=== PATIENT | female | born 1935 | race Hispanic/Latino ===

== ENCOUNTER 2018-01-04 11:36 | Emergency (ER) | payer SELFPAY ==
[2018-01-04 12:52] LABS: Absolute Lymphocytes (CBC) 2.1 K/uL (0.7-4.9); Absolute Monocytes 0.6 K/uL (0.1-1.3); Absolute Neutrophil 5.1 K/uL (1.8-8.0); Basophils % 0.8 % (0-1.3); Hematocrit 25.5 % (36.0-45.0); Lymphocytes % 25.2 % (15.3-44.8); MCH 28.4 pg (27.0-35.0); MCV 85.4 fL (80-100); MPV 8.9 fL (7.6-11.3); Monocytes % 7.9 % (3.3-12.3); RBC Red Blood Cell Count 2.99 M/uL (3.86-4.86)
[2018-01-04 13:14] LABS: C-Reactive Protein 45.3 mg/L (<3.00); Potassium 5.1 mmol/L (3.5-5.1)
--- NOTE | 2018-01-04 13:27 | RAD REPORT ---
EXAM DESCRIPTION: RAD - Foot Right 3 View - 01/04/2018 1:18 pm CLINICAL HISTORY: wound base of 1st toe COMPARISON: No comparisons FINDINGS: Soft tissue swelling is seen along the base of the first toe adjacent to the first metatar zonia head. No underlying evidence of osteomyelitis seen. Prominent calcaneal spurs are evident. Heavy atherosclerosis seen.
--- NOTE | 2018-01-04 14:31 | EDPHYS ---
Physician Documentation [facility] Name: Barb Becker Age: 82 yrs Sex: Female : 1935 Arrival Date: 01/04/2018 Time: 11:42 Bed 24 Private MD: ED Physician Narendra Bates HPI: 01/04 12:42 This 82 yrs old Female presents to ER via Ambulatory with complaints of Wound rn Infection. 12:42 The patient presents with cellulitis of the right foot. Description: warm. rn 12:43 Onset: The symptoms/episode began/occurred 1 week(s) ago. Possible cause(s): unknown. rn Severity of symptoms: At their worst the symptoms were moderate, in the emergency department the symptoms have improved. The patient has experienced similar episodes in the past. REports couldn't sleep over last few days because of aching and pain to right foot, has had ulcer on instep of right foot for about 4 months, reports recent redness and pain, no drainage, no fever, no injury. Is diabetic. . Historical: - Allergies: 11:59 No Known Allergies; hj - Home Meds: 11:59 furosemide 80 mg Oral tab 1 tab once daily [Active]; Vitamin D Oral [Active]; hj - PMHx: 11:59 Hypertension; Diabetes - NIDDM; hj - PSHx: 11:59 None; hj - Immunization history:: Adult Immunizations up to date. - Social history:: Smoking status: Patient/guardian denies using tobacco, Patient/guardian denies using alcohol. - Ebola Screening: : Patient negative for fever greater than or equal to 101.5 degrees Fahrenheit, and additional compatible Ebola Virus Disease symptoms Patient denies exposure to infectious person Patient denies travel to an Ebola-affected area in the 21 days before illness onset. - Family history:: not pertinent. - Hospitalizations: : No recent hospitalization is reported. ROS: 12:43 Constitutional: Negative for fever, chills, and weight loss, Eyes: Negative for injury, rn pain, redness, and discharge, Neck: Negative for injury, pain, and swelling, Cardiovascular: Negative for chest pain, palpitations, and edema, Respiratory: Negative for shortness of breath, cough, wheezing, and pleuritic chest pain, Abdomen/GI: Negative for abdominal pain, nausea, vomiting, diarrhea, and constipation, MS/Extremity: + right foot pain Skin: + redness to right foot Neuro: Negative for headache, weakness, and seizure. Exam: 12:43 Constitutional: This is a well developed, well nourished patient who is awake, alert, rn and in no acute distress. Head/Face: Normocephalic, atraumatic. ENT: MMM Cardiovascular: Regular rate and rhythm with a normal S1 and S2. No pulse deficits. Respiratory: Lungs have equal breath sounds bilaterally, clear to auscultation Abdomen/GI: soft, non-tender MS/ Extremity: Pulses equal, no cyanosis. Neurovascular intact. Full, normal range of motion. Equal circumference. Right plantar/medial surface of foot at base of 1st toe with chronic ulcer, no drainage, + mild surrounding erythema, no fluctuance or streaking. Neuro: Awake and alert, GCS 15, oriented to person, place, time, and situation. Cranial nerves II-XII grossly intact. Motor strength 5/5 in all extremities. Sensory grossly intact. Vital Signs: 11:59 BP 127 / 55; Pulse 68; Resp 18; Temp 97.8(TE); Pulse Ox 98% on R/A; Weight 60.78 kg; hj Height 5 ft. 0 in. (152.40 cm); Pain 10/10; 13:19 BP 144 / 89; Pulse 62; Resp 18; Pulse Ox 100% ; aj1 14:25 BP 147 / 60; Pulse 60; Resp 18; Pulse Ox 100% ; ds4 11:59 Body Mass Index 26.17 (60.78 kg, 152.40 cm) MDM: 12:06 Patient medically screened. rn 14:28 Differential diagnosis: cellulitis, osteomyelitis. Data reviewed: vital signs, nurses rn notes, lab test result(s), radiologic studies, plain films, and as a result, I will admit patient. Counseling: I had a detailed discussion with the patient and/or guardian regarding: the historical points, exam findings, and any diagnostic results supporting the discharge/admit diagnosis, lab results, radiology results, the need for further work-up and treatment in the hospital. Response to treatment: the patient's symptoms have mildly improved after treatment. ED course: Recommended admission given abnormal kidney function and cellulitis, family reports just evaluated in [place] 2 weeks ago, kidney function seems better because at that time was getting temporary dialysis, also state she had MRI of right foot and ruled out osteo, for these reasons, family requests outpt management with abx and will return if worsens.. 01/04 12:13 Order name: CBC with Diff; Complete Time: 13:40 rn 01/04 12:13 Order name: Basic Metabolic Panel; Complete Time: 13:40 rn 01/04 12:13 Order name: CRP; Complete Time: 13:40 rn 01/04 12:13 Order name: Sed Rate; Complete Time: 13:40 rn 01/04 12:13 Order name: XRAY Foot RIGHT 3 View; Complete Time: 13:40 rn 01/04 12:13 Order name: Blood Culture Adult (2) rn 01/04 12:13 Order name: IV Start; Complete Time: 12:35 rn 01/04 12:13 Order name: Glucose Level; Complete Time: 12:35 rn Administered Medications: 14:53 Drug: NS 0.9% 500 ml Route: IV; Rate: bolus; Site: right antecubital; aj1 15:42 Follow up: IV Status: Completed infusion iw 15:05 Drug: Bactrim (160 mg-800 mg (DS) 1 tablet Route: PO; aj1 15:43 Follow up: Response: No adverse reaction iw 15:05 Drug: LevaQUIN 500 mg Route: PO; aj1 15:43 Follow up: Response: No adverse reaction Point of Care Testing: Blood Glucose: 12:36 Blood Glucose: 206 mg/dL; aj1 Ranges: Critical Glucose Levels:Adult <50 mg/dl or >400 mg/dl <40 mg/dl or >180 mg/dl Disposition: 01/04/18 14:31 Discharged to Home. Impression: Cellulitis of right lower limb. - Condition is Stable. - Discharge Instructions: Cellulitis, Adult, Hyperglycemia. - Prescriptions for Levaquin 500 mg Oral Tablet - take 1 tablet by ORAL route once daily for 10 days; 10 tablet. Bactrim DS 800- 160 mg Oral Tablet - take 1 tablet by ORAL route every 12 hours for 10 days; 20 tablet. Tylenol- Codeine #3 300-30 mg Oral Tablet - take 1 tablet by ORAL route every 6 hours As needed; 20 tablet. Metformin 500 mg Oral Tablet - take 1 tablet by ORAL route once daily for 7 days Then take 1 tablet with morning meals AND evening meals; 60 tablet. - Medication Reconciliation Form, Thank You Letter, Antibiotic Education, Prescription Opioid Use form. - Follow up: Private Physician; When: As needed; Reason: Recheck today's complaints, Re-evaluation by your physician. - Problem is new. - Symptoms have improved. Signatures: Dispatcher [employer] EDMS Eliza Black RN RN aj1 Bel Russell RN RN iw Narendra Bates MD MD rn Joaquin, Henry, RN RN hj Corrections: (The following items were deleted from the chart) 15:43 14:31 01/04/2018 14:31 Discharged to Home. Impression: Cellulitis of right lower limb. iw Condition is Stable. Forms are Medication Reconciliation Form, Thank You Letter, Antibiotic Education, Prescription Opioid Use. Follow up: Private Physician; When: As needed; Reason: Recheck today's complaints, Re-evaluation by your physician. Problem is new. Symptoms have improved. rn
--- NOTE | 2018-01-04 14:31 | ER ---
Nurse's Notes [facility] Name: Barb Becker Age: 82 yrs Sex: Female : 1935 Arrival Date: 01/04/2018 Time: 11:42 Bed 24 Private MD: Diagnosis: Cellulitis of right lower limb Presentation: 01/04 11:56 Presenting complaint: grand daughter: she couldn't sleep all night because her R foot hj is aching and she has a wound and it looks like its infected; this wound has been there for weeks; denies taking meds [employer];. Transition of care: patient was not received from another setting of care. Onset of symptoms was January 04, 2018. Risk Assessment: Do you want to hurt yourself or someone else? Patient reports no desire to harm self or others. Initial Sepsis Screen: Does the patient meet any 2 criteria? No. Patient's initial sepsis screen is negative. Does the patient have a suspected source of infection? No. Patient's initial sepsis screen is negative. Care prior to arrival: None. 11:56 Method Of Arrival: Ambulatory 11:56 Acuity: SD 3 hj Triage Assessment: 11:59 General: Appears in no apparent distress. uncomfortable, Behavior is calm, cooperative, hj appropriate for age. Pain: Complains of pain in right leg. Historical: - Allergies: 11:59 No Known Allergies; hj - Home Meds: 11:59 furosemide 80 mg Oral tab 1 tab once daily [Active]; Vitamin D Oral [Active]; hj - PMHx: 11:59 Hypertension; Diabetes - NIDDM; hj - PSHx: 11:59 None; hj - Immunization history:: Adult Immunizations up to date. - Social history:: Smoking status: Patient/guardian denies using tobacco, Patient/guardian denies using alcohol. - Ebola Screening: : Patient negative for fever greater than or equal to 101.5 degrees Fahrenheit, and additional compatible Ebola Virus Disease symptoms Patient denies exposure to infectious person Patient denies travel to an Ebola-affected area in the 21 days before illness onset. - Family history:: not pertinent. - Hospitalizations: : No recent hospitalization is reported. Screenin:59 Abuse screen: Denies threats or abuse. Denies injuries from another. Nutritional hj screening: No deficits noted. Tuberculosis screening: No symptoms or risk factors identified. Fall Risk None identified. Assessment: 12:15 General: Appears in no apparent distress. uncomfortable, Behavior is calm, cooperative, aj1 appropriate for age. Pain: Complains of pain in right foot Pain currently is 5 out of 10 on a pain scale. Neuro: Level of Consciousness is awake, alert, obeys commands. Cardiovascular: Patient's skin is warm and dry. Respiratory: Airway is patent Respiratory effort is even, unlabored, Respiratory pattern is regular, symmetrical. GI: No signs and/or symptoms were reported involving the gastrointestinal system. : No signs and/or symptoms were reported regarding the genitourinary system. EENT: No signs and/or symptoms were reported regarding the EENT system. Derm: Wound noted right foot Wound is ulcer, patient states that it has been there for the past 4 months. Musculoskeletal: No signs and/or symptoms reported regarding the musculoskeletal system. Circulation, motion, and sensation intact. 13:19 Reassessment: Patient appears in no apparent distress at this time. No changes from aj1 previously documented assessment. Patient and/or family updated on plan of care and expected duration. Pain level reassessed. Patient is alert, oriented x 3, equal unlabored respirations, skin warm/dry/pink. 14:53 Reassessment: Patient appears in no apparent distress at this time. No changes from aj1 previously documented assessment. Patient and/or family updated on plan of care and expected duration. Pain level reassessed. Patient is alert, oriented x 3, equal unlabored respirations, skin warm/dry/pink. Patient discharge pending finishing IV fluids. Vital Signs: 11:59 BP 127 / 55; Pulse 68; Resp 18; Temp 97.8(TE); Pulse Ox 98% on R/A; Weight 60.78 kg; Height 5 ft. 0 in. (152.40 cm); Pain 10/10; 13:19 BP 144 / 89; Pulse 62; Resp 18; Pulse Ox 100% ; aj1 14:25 BP 147 / 60; Pulse 60; Resp 18; Pulse Ox 100% ; ds4 11:59 Body Mass Index 26.17 (60.78 kg, 152.40 cm) ED Course: 11:42 Patient arrived in ED. mr 11:57 Triage completed. 11:59 Arm band placed on left wrist. hj 11:59 Patient has correct armband on for positive identification. Bed in low position. Call hj light in reach. Side rails up X 1. 12:06 Narendra aBtes MD is Attending Physician. rn 12:14 Eliza Black RN is Primary Nurse. aj1 12:15 Inserted saline lock: 22 gauge in right antecubital area, using aseptic technique. aj1 Blood collected. 12:15 Initial lab(s) drawn, by wy, sent to lab. First set of blood cultures drawn by me. aj1 12:15 No provider procedures requiring assistance completed. aj1 12:32 Second set of blood cultures drawn by me. aj1 13:17 X-ray completed. Portable x-ray completed in exam room. Patient tolerated procedure ls3 well. 13:19 XRAY Foot RIGHT 3 View In Process Unspecified. EDMS 15:42 IV discontinued, intact, bleeding controlled, No redness/swelling at site. Pressure iw dressing applied. Administered Medications: 14:53 Drug: NS 0.9% 500 ml Route: IV; Rate: bolus; Site: right antecubital; aj1 15:42 Follow up: IV Status: Completed infusion iw 15:05 Drug: Bactrim (160 mg-800 mg (DS) 1 tablet Route: PO; aj1 15:43 Follow up: Response: No adverse reaction iw 15:05 Drug: LevaQUIN 500 mg Route: PO; aj1 15:43 Follow up: Response: No adverse reaction iw Point of Care Testing: Blood Glucose: 12:36 Blood Glucose: 206 mg/dL; aj1 Ranges: Outcome: 14:31 Discharge ordered by MD. rn 15:42 Discharged to home via wheelchair, with family. iw 15:42 Condition: good 15:42 Discharge instructions given to patient, family, Instructed on discharge instructions, follow up and referral plans. medication usage, Demonstrated understanding of instructions, follow-up care, medications, Prescriptions given X 4. 15:43 Patient left the ED. iw Signatures: Dispatcher [employer] EDHI Eliza Black RN RN ajKary Marshall Irene, RN RN iw Narendra Bates MD MD rn Swanson, Donovan ds4 Evans Santoro RN RN hj Siler, Lynzie ls3 Corrections: (The following items were deleted from the chart) 12:01 11:59 Pulse 68bpm; Resp 18bpm; Pulse Ox 98% RA; Temp 97.8F Temporal; 60.78 kg; Height 5 hj ft. 0 in.; BMI: 26.1; Pain 10/10; hj
[2018-01-04] MEDS ORDERED: NA CHLORIDE 0.9% 500 ML ONE (14:54)
[2018-01-04] MEDS ORDERED: SMZ./TMP. 800/160 MG TABLET ONE (15:08)
[2018-01-04] MEDS ORDERED: levoFLOXacin 500 MG TAB ONE (15:09)
== END 2018-01-04 15:43 | disposition home or self-care (01) ==
LOC: ER 11:36
DX: L03.115 Cellulitis of right lower limb (principal); I10 Essential (primary) hypertension
CPT/HCPCS: 36415; 80048; 82962; 85025; 85652; 86140; 87040; 96360; 99284

== ENCOUNTER 2018-01-05 17:06 | Inpatient (IN) | payer SELFPAY ==
[2018-01-05] MEDS ORDERED: ONDANSETRON 4 MG/2 ML VIAL ONE (17:35)
[2018-01-05] MEDS ORDERED: NA CHLORIDE 0.9% 500 ML ONE ×2 (17:36→19:16)
--- NOTE | 2018-01-05 17:47 | ER ---
Nurse's Notes [facility] Name: Barb Becker Age: 82 yrs Sex: Female : 1935 Arrival Date: 01/05/2018 Time: 17:09 Bed 20 Private MD: None, None Diagnosis: Cellulitis of right lower limb;Vomiting;Dehydration;Hyperglycemia, unspecified Presentation: 01/05 17:10 Presenting complaint: Child states: "She's been throwing up a lot since 4am this aj1 morning, she can't hold anything down, not even water. She hasn't been able to take her antibiotics." Patient was seen in this ER yesterday for infection of a wound on the right foot, she was diagnosed with cellulitis and discharged home with Rx for Tylenol #3, Bactrim, Levaquin, and Metformin. States that she took the Tylenol #3 last night, but has not taken any today and she has still been throwing up. Denies fever. Transition of care: patient was not received from another setting of care. Onset of symptoms was January 04, 2018. Risk Assessment: Do you want to hurt yourself or someone else? Patient reports no desire to harm self or others. Initial Sepsis Screen: Does the patient meet any 2 criteria? No. Patient's initial sepsis screen is negative. Does the patient have a suspected source of infection? Yes: Skin breakdown/wound. Care prior to arrival: None. 17:10 Method Of Arrival: Wheelchair aj1 17:10 Acuity: SD 3 aj1 Triage Assessment: 17:16 General: Appears in no apparent distress. comfortable, Behavior is calm, cooperative, aj1 appropriate for age. Pain: Denies pain. Neuro: Level of Consciousness is awake, alert, obeys commands. Cardiovascular: Patient's skin is warm and dry. Respiratory: Airway is patent Respiratory effort is even, unlabored, Respiratory pattern is regular, symmetrical. GI: Reports nausea, vomiting. Historical: - Allergies: 17:16 No Known Allergies; aj1 - Home Meds: 17:16 furosemide 80 mg Oral tab 1 tab once daily [Active]; Vitamin D Oral [Active]; Metformin aj1 Oral [Active]; Bactrim DS Oral [Active]; Levaquin Oral [Active]; tylenol #3 [Active]; - PMHx: 17:16 Diabetes - NIDDM; Hypertension; aj1 - Immunization history:: Flu vaccine is up to date. - Social history:: Smoking status: Patient/guardian denies using tobacco. - Ebola Screening: : Patient denies travel to an Ebola-affected area in the 21 days before illness onset. - Family history:: not pertinent. - Hospitalizations: : Patient was recently seen at. Screenin:30 Abuse screen: Denies threats or abuse. Denies injuries from another. Nutritional sv screening: No deficits noted. Tuberculosis screening: No symptoms or risk factors identified. Fall Risk None identified. Assessment: 17:30 General: Appears in no apparent distress. uncomfortable, Behavior is calm, cooperative, sv appropriate for age. Pain: Denies pain. Neuro: Level of Consciousness is awake, alert, obeys commands, Oriented to person, place, time, situation, Moves all extremities. Respiratory: Respiratory effort is even, unlabored, Respiratory pattern is regular, symmetrical. GI: Abdomen is flat, Reports intolerance of fluids, intolerance of food, nausea, vomiting. Derm: Skin is normal. 18:00 Reassessment: Patient appears in no apparent distress at this time. No changes from sv previously documented assessment. Patient and/or family updated on plan of care and expected duration. Pain level reassessed. Patient is alert, oriented x 3, equal unlabored respirations, skin warm/dry/pink. 19:29 General: Appears in no apparent distress. uncomfortable, Behavior is calm, cooperative, ea appropriate for age. Pain: Denies pain. Neuro: Level of Consciousness is awake, alert, obeys commands, Oriented to person, place, time, situation, Moves all extremities. Cardiovascular: Patient's skin is warm and dry. Respiratory: Airway is patent Respiratory effort is even, unlabored, Respiratory pattern is regular, symmetrical. GI: Abdomen is non-distended, Bowel sounds present X 4 quads. Reports intolerance of fluids, intolerance of food, nausea. Derm: Skin is dry, Skin is normal, Skin temperature is warm. 20:36 Reassessment: Report called to receiving nurse on fourth floor. Reassessment: Patient ea and/or family updated on plan of care and expected duration. Pain level reassessed. Patient is alert, oriented x 3, equal unlabored respirations, skin warm/dry/pink. Vital Signs: 17:16 BP 135 / 42; Pulse 59; Resp 18; Temp 97.3; Pulse Ox 100% on R/A; Weight 60.78 kg (R); aj1 Height 5 ft. 0 in. (152.40 cm); Pain 0/10; 17:45 BP 153 / 52; Pulse 59; Resp 16; Pulse Ox 100% ; sv 19:00 BP 154 / 41; Pulse 61; Resp 16; Pulse Ox 99% ; sv 19:30 BP 160 / 55; Pulse 73; Resp 18; Pulse Ox 100% ; ea 17:16 Body Mass Index 26.17 (60.78 kg, 152.40 cm) aj1 ED Course: 17:09 Patient arrived in ED. sb2 17:10 None, None is Private Physician. sb2 17:15 Triage completed. aj1 17:16 Arm band placed on Patient placed in an exam room. aj1 17:20 Narendra Bates MD is Attending Physician. rn 17:26 Arlyn Ramires RN is Primary Nurse. sv 17:30 Patient has correct armband on for positive identification. Placed in gown. Bed in low sv position. Call light in reach. Side rails up X2. Adult w/ patient. Pulse ox on. NIBP on. Door closed. Warm blanket given. Head of bed elevated. 17:30 Initial lab(s) drawn, by me, sent to lab. First set of blood cultures drawn by me. sv Inserted saline lock: 20 gauge in right forearm, using aseptic technique. Blood collected. Flushed right forearm with 5 ml normal saline. 17:45 Second set of blood cultures drawn by me. sv 17:46 Raimundo Torres MD is Hospitalizing Provider. rn 19:00 Report given to Katey BAUTISTA. sv 20:35 No provider procedures requiring assistance completed. Patient admitted, IV remains in ea place. Administered Medications: 17:50 Drug: NS 0.9% 500 ml Route: IV; Rate: bolus; Site: right forearm; sv 19:24 Follow up: Response: No adverse reaction; IV Status: Completed infusion; IV Intake: ea 500ml 17:51 Drug: Zofran 4 mg Route: IVP; Site: right forearm; sv 19:25 Follow up: Response: No adverse reaction ea 19:25 Follow up: Response: Marked relief of symptoms ea 19:24 Drug: NS 0.9% 500 ml Route: IV; Rate: bolus; Site: right antecubital; ea Intake: 19:24 IV: 500ml; Total: 500ml. ea Outcome: 17:47 Decision to Hospitalize by Provider. rn 19:00 Admitted to Med/surg accompanied by tech, room 430, with chart, Report called to ea Receiving nurse on fourth floor 19:00 Instructed on the need for admit. 21:00 Condition: stable ea 21:03 Patient left the ED. ea Signatures: Eliza Black, MICHELE RN ajArlyn Cortes, RN Narendra Jeong MD MD rn Antunez, Elena, RN RN ea Billeau, Sheri sb2
--- NOTE | 2018-01-05 17:47 | EDPHYS ---
Physician Documentation [facility] Name: Barb Becker Age: 82 yrs Sex: Female : 1935 Arrival Date: 01/05/2018 Time: 17:09 Bed 20 Private MD: None, None ED Physician Narendra Bates HPI: 01/05 17:30 This 82 yrs old Female presents to ER via Wheelchair with complaints of rn Vomiting. 17:30 The patient presents to the emergency department with nausea, vomiting. Onset: The rn symptoms/episode began/occurred this morning. Possible causes: antibiotics. Associated signs and symptoms: Pertinent positives: nausea, vomiting. Severity of symptoms: At their worst the symptoms were moderate in the emergency department the symptoms are unchanged. The patient has not experienced similar symptoms in the past. The patient has been recently seen at the [facility] Emergency Department. Seen by me yesterday for wound infection, just discharged 2-3 weeks ago from [place] for renal failure, had dialysis, given abx yesterday, returns with vomiting, not able to tolerate oral abx or pain medication or metformin. No abd pain, no diarrhea. Likely medication reaction.. Historical: - Allergies: 17:16 No Known Allergies; aj1 - Home Meds: 17:16 furosemide 80 mg Oral tab 1 tab once daily [Active]; Vitamin D Oral [Active]; Metformin aj1 Oral [Active]; Bactrim DS Oral [Active]; Levaquin Oral [Active]; tylenol #3 [Active]; - PMHx: 17:16 Diabetes - NIDDM; Hypertension; aj1 - Immunization history:: Flu vaccine is up to date. - Social history:: Smoking status: Patient/guardian denies using tobacco. - Ebola Screening: : Patient denies travel to an Ebola-affected area in the 21 days before illness onset. - Family history:: not pertinent. - Hospitalizations: : Patient was recently seen at. ROS: 17:30 Constitutional: Negative for fever, chills, and weight loss, Eyes: Negative for injury, rn pain, redness, and discharge, Neck: Negative for injury, pain, and swelling, Cardiovascular: Negative for chest pain, palpitations, and edema, Respiratory: Negative for shortness of breath, cough, wheezing, and pleuritic chest pain, Abdomen/GI: Negative for abdominal pain, diarrhea, and constipation, MS/Extremity: Negative for injury and deformity, Skin: + discoloration or right foot wound Neuro: Negative for headache, weakness, numbness, tingling, and seizure. Exam: 17:30 Constitutional: This is a well developed, well nourished patient who is awake, alert, rn holding emesis bag Head/Face: Normocephalic, atraumatic. Eyes: Pupils equal round and reactive to light, extra-ocular motions intact. Lids and lashes normal. Conjunctiva and sclera are non-icteric and not injected. Cornea within normal limits. Periorbital areas with no swelling, redness, or edema. ENT: dry MM Cardiovascular: regular, bradycardic, no murmur Respiratory: Lungs have equal breath sounds bilaterally, clear to auscultation Abdomen/GI: soft, non-tender MS/ Extremity: Pulses equal, no cyanosis. Neurovascular intact. Full, normal range of motion. Equal circumference. + right foot on medial side of base of 1st toe with open wound, mild erythema and warmth, no fluctuance, + moist skin without purulence Neuro: Awake and alert, GCS 15, oriented to person, place, time, and situation. Cranial nerves II-XII grossly intact. Motor strength 5/5 in all extremities. Sensory grossly intact. Vital Signs: 17:16 BP 135 / 42; Pulse 59; Resp 18; Temp 97.3; Pulse Ox 100% on R/A; Weight 60.78 kg (R); aj1 Height 5 ft. 0 in. (152.40 cm); Pain 0/10; 17:45 BP 153 / 52; Pulse 59; Resp 16; Pulse Ox 100% ; sv 19:00 BP 154 / 41; Pulse 61; Resp 16; Pulse Ox 99% ; sv 19:30 BP 160 / 55; Pulse 73; Resp 18; Pulse Ox 100% ; ea 17:16 Body Mass Index 26.17 (60.78 kg, 152.40 cm) aj1 MDM: 17:20 Patient medically screened. rn 17:37 Differential diagnosis: medication reaction, hyperglycemia. Data reviewed: vital signs, rn nurses notes, old medical records, lab test result(s), and as a result, I will admit patient. Counseling: I had a detailed discussion with the patient and/or guardian regarding: the historical points, exam findings, and any diagnostic results supporting the discharge/admit diagnosis, lab results, radiology results, the need for further work-up and treatment in the hospital. Admission orders: after a detailed discussion of the patient's condition and case, the admit orders are written by me. ED course: Pt with foot infection, not able to tolerate oral abx or pain meds or diabetic meds, will admit for further care, and MRI to rule out osteo. Dr. Torres notified. . 01/05 17:25 Order name: CBC with Diff; Complete Time: 18:57 rn 01/05 17:25 Order name: Basic Metabolic Panel; Complete Time: 18:57 rn 01/05 17:25 Order name: Blood Culture Adult (2) rn 01/05 17:25 Order name: IV Start; Complete Time: 17:52 rn Administered Medications: 17:50 Drug: NS 0.9% 500 ml Route: IV; Rate: bolus; Site: right forearm; sv 19:24 Follow up: Response: No adverse reaction; IV Status: Completed infusion; IV Intake: ea 500ml 17:51 Drug: Zofran 4 mg Route: IVP; Site: right forearm; sv 19:25 Follow up: Response: No adverse reaction ea 19:25 Follow up: Response: Marked relief of symptoms ea 19:24 Drug: NS 0.9% 500 ml Route: IV; Rate: bolus; Site: right antecubital; ea Disposition: 01/05/18 17:47 Hospitalization ordered by Raimundo Torres for Inpatient Admission. Preliminary diagnosis are Cellulitis of right lower limb, Vomiting, Dehydration, Hyperglycemia, unspecified. - Bed requested for Telemetry/MedSurg (Inpatient). - Status is Inpatient Admission. ea - Condition is Stable. - Problem is new. - Symptoms have improved. UTI on Admission? No Signatures: Dispatcher [employer] EDMS Eliza Black RN RN aj1 Verde, Stephanie, RN RN sv Woody, Diana, RN RN dw Nieto, Roman, MD MD rn Antunez, Elena, RN RN ea Corrections: (The following items were deleted from the chart) 18:25 17:47 Hospitalization Ordered by Raimundo Torres MD for Inpatient Admission. Preliminary jillian diagnosis is Cellulitis of right lower limb; Vomiting; Dehydration; Hyperglycemia, unspecified. Bed requested for Telemetry/MedSurg (Inpatient). Status is Inpatient Admission. Condition is Stable. Problem is new. Symptoms have improved. UTI on Admission? No. rn 21:03 18:25 01/05/2018 17:47 Hospitalization Ordered by Raimundo Torres MD for Inpatient ea Admission. Preliminary diagnosis is Cellulitis of right lower limb; Vomiting; Dehydration; Hyperglycemia, unspecified. Bed requested for Telemetry/MedSurg (Inpatient). Status is Inpatient Admission. Condition is Stable. Problem is new. Symptoms have improved. UTI on Admission? No. dw
[2018-01-05 17:56] LABS: Absolute Lymphocytes (CBC) 1.1 K/uL (0.7-4.9); Absolute Monocytes 0.3 K/uL (0.1-1.3); Basophils % 0.4 % (0-1.3); Eosinophils % 0.5 % (0-4.4); Hematocrit 23.8 % (36.0-45.0); Lymphocytes % 11.5 % (15.3-44.8); MCH 27.8 pg (27.0-35.0); MCV 86.1 fL (80-100); MPV 8.8 fL (7.6-11.3); Monocytes % 3.3 % (3.3-12.3); RBC Red Blood Cell Count 2.76 M/uL (3.86-4.86)
[2018-01-05 18:33] LABS: Potassium 5.6 mmol/L (3.5-5.1)
[2018-01-05 22:27] LABS: Absolute Lymphocytes (CBC) 1.8 K/uL (0.7-4.9); Absolute Monocytes 0.4 K/uL (0.1-1.3); Basophils % 0.3 % (0-1.3); Eosinophils % 0.7 % (0-4.4); Hematocrit 24.1 % (36.0-45.0); Lymphocytes % 21.8 % (15.3-44.8); MCH 27.8 pg (27.0-35.0); MPV 8.7 fL (7.6-11.3); Monocytes % 5.3 % (3.3-12.3); RBC Red Blood Cell Count 2.84 M/uL (3.86-4.86)
[2018-01-05 22:41] LABS: Potassium 5.2 mmol/L (3.5-5.1)
[2018-01-06] MEDS: ENOXAPARIN 30 MG/0.3 ML SQ SCH ×2 (00:55→09:42)
[2018-01-06] MEDS: ONDANSETRON 4 MG/2 ML VIAL IV PRN ×3 (04:46→17:52)
[2018-01-06 05:11] LABS: Absolute Lymphocytes (CBC) 2.3 K/uL (0.7-4.9); Absolute Monocytes 0.6 K/uL (0.1-1.3); Absolute Neutrophil 5.2 K/uL (1.8-8.0); Basophils % 0.4 % (0-1.3); Eosinophils % 2.1 % (0-4.4); Hematocrit 22.7 % (36.0-45.0); MCH 28.7 pg (27.0-35.0); MCV 84.5 fL (80-100); MPV 8.9 fL (7.6-11.3); RBC Red Blood Cell Count 2.68 M/uL (3.86-4.86)
[2018-01-06 05:34] LABS: Albumin 2.1 g/dL (3.4-5.0); Bilirubin Total 0.2 mg/dL (0.2-1.0); Potassium 5.3 mmol/L (3.5-5.1); Protein, Total 6.5 g/dL (6.4-8.2)
[2018-01-06] MEDS: ACETAMINOPHEN 500 MG TAB PO PRN ×2 (09:41→15:41)
--- NOTE | 2018-01-06 11:10 | P.HP ---
Certification for Inpatient Patient admitted to: Inpatient With expected LOS: >2 Midnights Patient will require the following post-hospital care: None Practitioner: I am a practitioner with admitting privileges, knowledge of patient current condition, hospital course, and medical plan of care. Services: Services provided to patient in accordance with Admission requirements found in Title 42 Section 412.3 of the Code of Federal Regulations Patient History Date of Service: 01/05/18 Reason for admission: cellulitis of the right foot History of Present Illness: Patient is an 82-year-old female who has been hospitalized in the [facility] area for renal failure. She was started on dialysis and since that time patient has been slowly improving. The family brought her down here to [place], [place]. however, patient became confused and her hemodialysis access catheter appeared not to be working. patient had been into the ER for a right foot infection which had progressed. Patient was unable to tolerate antibiotics for nausea and vomiting. Decision was made to admit the patient to the hospital for further workup. Allergies No Known Allergies Allergy (Verified 01/05/18 22:12) Home Medications: Acetaminophen with Codeine [Acetaminophen-Cod #3 Tablet] 1 each PO Q6H 01/05/18 Levofloxacin [Levaquin] 500 mg PO DAILY 01/05/18 Metformin ER [Glucophage ER] 500 mg PO DAILY 01/05/18 Sulfamethoxazole/Trimethoprim [Sulfamethoxazole-Tmp Ds Tablet] 1 each PO Q12H - Past Medical/Surgical History Has patient received pneumonia vaccine in the past: Yes Diabetic: Yes -: HTN -: DM -: "liver problems" -: hemodialysis access catheter - Family History Father Family History: Reviewed- Non-Contributory - Social History Smoking Status: Never smoker Alcohol use: No CD- Drugs: No Caffeine use: No Place of Residence: Home Review of Systems 10-point ROS is otherwise unremarkable Physical Examination - Vital Signs Temperature: 97.8 F Blood Pressure: 121/58 Pulse: 62 Respirations: 16 Pulse Ox (%): 98 - Physical Exam General: Alert, In no apparent distress, Cooperative, Cachectic, Mild distress HEENT: Atraumatic, PERRLA, Mucous membr. moist/pink, EOMI, Sclerae nonicteric Neck: Supple, 2+ carotid pulse no bruit, No LAD, Without JVD or thyroid abnormality Respiratory: Clear to auscultation bilaterally, Normal air movement Cardiovascular: Regular rate/rhythm, Normal S1 S2, Systolic murmur Gastrointestinal: Normal bowel sounds, Soft and benign, Non-distended, No tenderness Musculoskeletal: No tenderness Integumentary: Skin lesion, Tenderness/swelling, Erythema, Warmth Neurological: Normal gait, Normal speech, Normal strength at 5/5 x4 extr, Normal tone, Normal affect Lymphatics: No axilla or inguinal lymphadenopathy - Studies Laboratory Data (last 24 hrs) 01/05/18 17:30: Sodium 129 L, Potassium 5.6 H*, BUN 74 H, Creatinine 3.40 H, Glucose 226 H 01/05/18 17:30: WBC 9.5 D, Hgb 7.7 L*, Hct 23.8 L, Plt Count 382 Assessment & Plan - Problems (Diagnosis) (1) Diabetes type 2, controlled Current Visit: Yes Status: Acute (2) Cellulitis Onset Date: 01/06/18 Current Visit: Yes Status: Acute (3) HTN (hypertension) Current Visit: Yes Status: Acute - Plan 1. Continue with IV antibiotic 2. Continue with local wound care 3. Wound care consultation/surgical consultation 4. Gentle IV hydration 5. Monitor CBC 6. Strict blood sugar monitoring 7. Pain control 8. HD per Nephrology 9. GI and DVT prophylaxis Discharge Plan: Home Plan to discharge in: Greater than 2 days - Advance Directives Does patient have a Living Will: No Does patient have a Durable POA for Healthcare: No - Code Status/Comfort Care Code Status Assessed: Yes Code Status: Full Code Critical Care: No Time Spent Managing PTS Care (In Minutes): 50
--- NOTE | 2018-01-06 13:55 | RAD REPORT ---
EXAM DESCRIPTION: US - Renal Ultrasound-Complete - 01/06/2018 1:34 pm CLINICAL HISTORY: . Chronic renal disease COMPARISON: None. FINDINGS: The right kidney measures 11 cm with increased echotexture. The left kidney measures 10 cm with increased echotexture. 8 millimeters cyst is present Hydronephrosis is not seen. Small echogenic structures within the kidneys may represent stones Bladder is decompressed without visualization of a gross abnormality A gallstone is seen. IMPRESSION: Increased renal echotexture consistent with parenchymal disease Small echogenic structures within the kidneys may represent nonobstructing calculi
[2018-01-06 17:20] LABS: Urine Appearance CLEAR; Urine Bilirubin NEGATIVE (NEG); Urine Blood TRACE (NEG); Urine Color YELLOW; Urine Glucose TRACE (NEG); Urine Protein 3+ (NEG); Urine Urobilinogen 0.2 mg/dL (0.2-1.0)
[2018-01-06 17:24] LABS: Urine Microscopic Reflex ORDER UMIC
[2018-01-06 17:29] LABS: Urine Protein/Creatinine Ratio 12.26 ratio (<0.15)
[2018-01-06 17:35] LABS: Urine Amorphous Sediment 1+ /HPF (NONE SEEN); Urine Bacteria <20 /HPF (<20)
[2018-01-06 17:41] LABS: Urine Culture Reflex Order NOT NEEDED
--- NOTE | 2018-01-06 18:15 | RAD REPORT ---
EXAM DESCRIPTION: MRI - Foot Right Wo Cont - 01/06/2018 5:33 pm CLINICAL HISTORY: Right foot pain swelling COMPARISON: 01/04/2018 x-ray TECHNIQUE: Axial, sagittal, and coronal magnetic images of the right foot obtained FINDINGS: Ulceration involves the soft tissues medial to the first MTP joint. Small area of increased signal is seen within the first metatarsal head. Soft tissue abscess is not noted. IMPRESSION: Small area of increased signal within the first metatarsal head suspicious for osteomyel itis
--- NOTE | 2018-01-06 19:01 | P.PN ---
Subjective Date of Service: 01/08/18 Chief Complaint: cellulitis of the right foot Patient seen and examined at bedside. Daughter at bedside. Case discussed with nursing staff. The patient denies any new complaints this morning. She is visiting from [place], would like to go back to [place] after feeling better. Review of Systems As noted Physical Examination - Vital Signs Temperature: 98.0 F Blood Pressure: 165/69 Pulse: 79 Respirations: 18 Pulse Ox (%): 99 - Physical Exam General: Alert, In no apparent distress, Oriented x3 HEENT: Atraumatic, PERRLA, EOMI Neck: Supple, JVD not distended Respiratory: Clear to auscultation bilaterally, Normal air movement Cardiovascular: Regular rate/rhythm, Normal S1 S2 Gastrointestinal: Normal bowel sounds, No tenderness Musculoskeletal: No tenderness Integumentary: Skin lesion, Tenderness/swelling Neurological: Normal speech, Normal tone, Normal affect Assessment And Plan - Plan Cellulitis of left foot Patient with ulceration on left foot, at the base of the 1st toe. Noted some drainage, no tunneling appreciated. MRI of the left foot with evidence of osteomyelitis of bone. Continue IV vancomycin. Will likely need long-term IV antibiotic NENA on CKD, stage unsure Unsure of baseline as we do not have records. Continue IV hydration Nephrology on board pending workup. Recommendations appreciated HTN (hypertension) Continue carvedilol, blood pressure has been labile. Will adjust medications as needed Diabetes mellitus, type 2. Accu-Cheks. Sliding scale insulin. Will adjust as needed Anemia Type and screen ordered, may require transfusion if hemoglobin drops below 7. Workup for nephrology point of view pending. Will continue to monitor DVT prophylaxis: Lovenox GI prophylaxis: Not needed Diet, renal Disposition: Pending symptomatic improvement.
[2018-01-06] MEDS: NA CHLORIDE 0.9% 1,000 ML IV SCH (22:40)
--- NOTE | 2018-01-07 02:10 | CON ---
History Of Present Illness: This is an 82-year-old female with significant past medical history of d iabrad complicated with retinopathy and neuropathy, hypertension, hyperlipidemia, chronic kidney dis ease unknown stage. The patient was apparently recently admitted to the dialysis floor with acute ki dney injury and hyperkalemia, initiated on dialysis. According to the family, the patient received 3 sessions of dialysis. Then after that, kidney function improved. PermCath was removed. The patien t came to her family to live with her family here. The patient started feeling weak, nausea and vomi ting, to go to the emergency room. In the emergency room, primary workup showed elevation in BUN and creatinine and hyperkalemia. For that reason, we have been consulted. The patient denied taking an y nonsteroidal. No IV contrast. The patient admits that she has a chronic kidney disease, but does not know her baseline; and apparently, she has chronic hyperkalemia and is ongoing for the last 2 mon ths. The patient denied taking any nonsteroidal. No IV contrast. Past Medical History: Includes; 1.Hypertension. 2.Hyperlipidemia. 3.Chronic kidney disease, unknown stage. Social History: Denies smoking. Denies drinking. Denies drugs abuse. Past Surgical History: Includes PermCath placement and removal. Family History: Positive for diabetes. Allergies: NO KNOWN DRUGS ALLERGY. Home Medications: Include Tylenol, Levaquin, metformin, and Bactrim. Review of Systems: Head and Neck: No red eye. No ear pain. GI: Has nausea and vomiting. : No polyuria. No dysuria. No hematuria. [employer]: No vaginal discharge. Respiratory: No shortness breath. Cardiovascular: No chest pain. Endocrine: No polydipsia. Skin: No rashes. Neurologic: Has neuropathy. Musculoskeletal: No joint pain. Physical Examination: Vital Signs: Blood pressure 165/67, pulse of 63, and afebrile. Chest: Clear to auscultation. Heart: S1, S2. Regular. Abdomen: Soft, nontender. Extremities: No edema. Laboratory Data: Sodium 133, potassium 5.3, bicarb 23, BUN 66, creatinine 3.3, GFR of 14, calcium 7. 7. WBC 8.3, H and H 7.7/22.7, and platelet 263. Urinalysis; specific gravity of 1.010. Protein-cre atinine ratio of 12 g. Current Medications: In the hospital include Lovenox and Zofran. Assessment And Plan: 1.Chronic kidney disease, unknown baseline, mostly secondary to diabetic nephropathy with recent acu te kidney injury with hyperkalemia. 2.I am going to go ahead and request the record from the other hospital. The acute component could be secondary to sulfa use and metformin. I agree with holding the metformin and sulfa. Given the pr esence of the anemia, light chain disease needs to be ruled out. We will send for SPEP and UPEP, and we will monitor the patient. 3.Hypertension, not controlled. I am going to start the patient on carvedilol, and we will follow u p. We will keep holding on adding any EMMA inhibitor or ARB. 4.Anemia in the presence of acute kidney injury and nephrotic range of proteinuria. Light chain dis ease needs to be ruled out. I am going to go ahead and send for SPEP and UPEP. We will send for ful l serology. 5.Diabetes as by primary. 6.Anemia as above. We will arrange for transfusion if the patient does not have any other reason fo r the anemia, and we will consider adding TSA if no iron-deficiency anemia. 7.Urinary tract infection, stable. We will follow up with the primary. I had long discussion with the patient in the presence of the daughter that if kidney function contin ues to deteriorate or does not improve, the patient may need to reinitiate renal replacement therapy. The patient agreed and family agreed. CAITLYN Voice ID: [id number] Report ID: [id number]
[2018-01-07 04:58] LABS: Absolute Lymphocytes (CBC) 2.6 K/uL (0.7-4.9); Absolute Monocytes 0.6 K/uL (0.1-1.3); Absolute Neutrophil 4.2 K/uL (1.8-8.0); Basophils % 0.6 % (0-1.3); Eosinophils % 4.2 % (0-4.4); Hematocrit 21.4 % (36.0-45.0); Lymphocytes % 33.4 % (15.3-44.8); MCH 27.9 pg (27.0-35.0); MCV 85.5 fL (80-100); MPV 8.7 fL (7.6-11.3); Monocytes % 8.3 % (3.3-12.3)
[2018-01-07 05:42] LABS: ALT/SGPT 8 U/L (12-78); AST/SGOT 11 U/L (15-37); Albumin 2.1 g/dL (3.4-5.0); Alkaline Phosphatase 69 U/L (45-117); BUN Blood Urea Nitrogen 62 mg/dL (7-18); Bicarbonate 20 mmol/L (21-32); Bilirubin Total 0.1 mg/dL (0.2-1.0); Ferritin 48.3 ng/mL (8-388); Folic Acid, (Folate) 15.9 ng/mL (3.1-17.5); Glucose Level 114 mg/dL (74-106); Phosphorus 5.1 mg/dL (2.5-4.9); Potassium 4.8 mmol/L (3.5-5.1); Protein, Total 6.4 g/dL (6.4-8.2); Sodium Level 136 mmol/L (136-145); Transferrin 142 mg/dL (200-360)
[2018-01-07] MEDS ORDERED: FUROSEMIDE 20 MG/ 2ML VIAL IV SCH (06:00)
[2018-01-07 07:31] LABS: Rheumatoid Factor NEG (NEG)
[2018-01-07] MEDS ORDERED: FUROSEMIDE 40 MG/4 ML VIAL IV SCH (08:06)
[2018-01-07] MEDS: ENOXAPARIN 30 MG/0.3 ML SQ SCH (08:46)
[2018-01-07] MEDS: ACETAMINOPHEN 500 MG TAB PO PRN ×2 (08:47→13:10)
[2018-01-07] MEDS: CARVEDILOL 6.25 MG TAB PO SCH ×2 (08:47→20:49)
[2018-01-07] MEDS: MEDIHONEY 44 ML TOPICAL TUBE TOP SCH (08:48)
[2018-01-07] MEDS: VANCOMYCIN/NS 1 gm 1 GM/250 ML BAG IV SCH (09:00)
[2018-01-07] MEDS ORDERED: NA CHLORIDE 0.9% 500 ML ONE (09:46)
[2018-01-07] MEDS: POLYETHYL GLY 3350 17 GM/DOSE PO PRN (13:11)
[2018-01-07] MEDS: NA CHLORIDE 0.9% 1,000 ML IV SCH (13:12)
--- NOTE | 2018-01-07 14:43 | P.PN ---
Subjective Date of Service: 01/07/18 Chief Complaint: cellulitis of the right foot No new complaints receiving PRBC euvolemic Cr stable on IV vanco monitor vanco level and adjust medsa as per dose records requested Physical Examination - Vital Signs Temperature: 97.5 F Blood Pressure: 127/58 Pulse: 60 Respirations: 16 Pulse Ox (%): 97 - Physical Exam General: Oriented x3 Neck: Supple Respiratory: Clear to auscultation bilaterally Cardiovascular: No edema, Regular rate/rhythm, Normal S1 S2 Gastrointestinal: Normal bowel sounds Assessment And Plan - Current Problems (Diagnosis) (1) CKD (chronic kidney disease) Current Visit: Yes Status: Chronic (2) Cellulitis Onset Date: 01/06/18 Current Visit: Yes Status: Acute (3) Diabetes type 2, controlled Current Visit: Yes Status: Acute (4) HTN (hypertension) Current Visit: Yes Status: Acute - Plan NENA vs CKD unknown baseline Cr CKD ;likely due to DM was recently hospitalzied and required temp dialysis will try to obtain old records Cr now stable ~3.3 UPC 12 F/U serology w/u US 11/10cm no hydro will request old records will consider to hold lasix tomorrow Hypertension, controlled now Anemia in the presence of acute kidney injury and nephrotic range of proteinuria. F/U SPEP, IEF and K/L Diabetes as by primary. Anemia as above. b12 and folate ok will not check iron panel as pt have acute inflammation Urinary tract infection, stable. We will follow up with the primary. Foot pain MRI; possible Rt 1st toe OM? monitor vanco level MBD PTH 284 calcium ok
[2018-01-07 15:21] LABS: Hematocrit 25.6 % (36.0-45.0); MCH 28.5 pg (27.0-35.0); MPV 8.5 fL (7.6-11.3); RBC Red Blood Cell Count 2.98 M/uL (3.86-4.86)
--- NOTE | 2018-01-07 21:41 | P.PN ---
Subjective Date of Service: 01/08/18 Chief Complaint: cellulitis of the right foot Patient seen and examined at bedside. Daughter at bedside. Case discussed with nursing staff. The patient denies any new complaints this morning though still complaining of foot pain. She is visiting from [place], would like to go back to [place] after feeling better. Physical Examination - Vital Signs Temperature: 98.5 F Blood Pressure: 138/64 Pulse: 56 Respirations: 16 Pulse Ox (%): 99 Assessment And Plan - Plan Cellulitis of left foot Patient with ulceration on left foot, at the base of the 1st toe. Noted some drainage, no tunneling appreciated. MRI of the left foot with evidence of osteomyelitis of bone. Continue IV vancomycin. Will likely need long-term IV antibiotic NENA on CKD, stage unsure Unsure of baseline as we do not have records. Continue IV hydration Nephrology on board pending workup. Recommendations appreciated Hyperkalemia: Resolved. continue to monitor Nephrology workup pending HTN (hypertension) Continue carvedilol, blood pressure has been labile. Will adjust medications as needed Diabetes mellitus, type 2. Accu-Cheks. Sliding scale insulin. Will adjust as needed Anemia Type and screen ordered, may require transfusion if hemoglobin drops below 7. Workup for nephrology point of view pending. Will continue to monitor DVT prophylaxis: Lovenox GI prophylaxis: Not needed Diet, renal Disposition: Pending symptomatic improvement.
[2018-01-08] MEDS: NA CHLORIDE 0.9% 1,000 ML IV SCH ×3 (00:40→13:00)
[2018-01-08] MEDS: ACETAMINOPHEN 500 MG TAB PO PRN (05:41)
[2018-01-08 06:14] LABS: Absolute Lymphocytes (CBC) 2.5 K/uL (0.7-4.9); Absolute Monocytes 0.6 K/uL (0.1-1.3); Absolute Neutrophil 4.2 K/uL (1.8-8.0); Basophils % 0.7 % (0-1.3); Eosinophils % 4.9 % (0-4.4); MCH 28.5 pg (27.0-35.0); MCV 84.7 fL (80-100); MPV 8.7 fL (7.6-11.3); Monocytes % 7.4 % (3.3-12.3); RBC Red Blood Cell Count 3.07 M/uL (3.86-4.86)
[2018-01-08 06:47] LABS: Albumin 2.1 g/dL (3.4-5.0); Bilirubin Total 0.2 mg/dL (0.2-1.0); Phosphorus 5.3 mg/dL (2.5-4.9); Potassium 4.7 mmol/L (3.5-5.1); Protein, Total 6.4 g/dL (6.4-8.2)
[2018-01-08] MEDS: ENOXAPARIN 30 MG/0.3 ML SQ SCH (09:06)
[2018-01-08] MEDS: POLYETHYL GLY 3350 17 GM/DOSE PO PRN (09:06)
[2018-01-08] MEDS: CARVEDILOL 6.25 MG TAB PO SCH ×2 (09:06→22:08)
[2018-01-08] MEDS: MEDIHONEY 44 ML TOPICAL TUBE TOP SCH (09:07)
--- NOTE | 2018-01-08 10:35 | RAD REPORT ---
EXAM DESCRIPTION: Rachel Single View01/08/2018 7:13 am CLINICAL HISTORY: Chest pain COMPARISON: none FINDINGS: The lungs appear clear of acute infiltrate. The heart is mildly enlarged. Significant ple ural effusion is not seen IMPRESSION: No acute abnormalities displayed
[2018-01-08] MEDS ORDERED: D50W 25 GM/50 ML SYRINGE IV PRN (11:41)
[2018-01-08] MEDS ORDERED: GLUCAGON 1 MG/VIAL IM PRN (11:41)
[2018-01-08] MEDS: INSULIN -REGULAR HUMAN 50 UNIT/0.5 ML ML SQ SCH ×2 (15:50→22:09)
--- NOTE | 2018-01-08 16:41 | P.PN ---
Subjective Date of Service: 01/08/18 Chief Complaint: cellulitis of the right foot Patient seen and examined at bedside. Daughter at bedside. Case discussed with nursing staff. The patient denies any new complaints this morning though still complaining of foot pain. She is visiting from [place], would like to go back to [place] after feeling better. Physical Examination - Vital Signs Temperature: 98.5 F Blood Pressure: 138/64 Pulse: 56 Respirations: 16 Pulse Ox (%): 99 - Physical Exam General: Alert, In no apparent distress, Oriented x3 HEENT: Atraumatic, PERRLA, EOMI Neck: Supple, JVD not distended Respiratory: Clear to auscultation bilaterally, Normal air movement Cardiovascular: Regular rate/rhythm, Normal S1 S2 Gastrointestinal: Normal bowel sounds, No tenderness Musculoskeletal: No tenderness Integumentary: Skin breakdown, Skin lesion, Tenderness/swelling Neurological: Normal speech, Normal tone, Normal affect Assessment And Plan - Plan Cellulitis of left foot Patient with ulceration on left foot, at the base of the 1st toe. Noted some drainage, no tunneling appreciated. MRI of the left foot with evidence of osteomyelitis of bone. Continue IV vancomycin. Will likely need long-term IV antibiotic NENA on CKD, stage unsure Unsure of baseline as we do not have records. Continue IV hydration Nephrology on board pending workup. Recommendations appreciated Hyperkalemia: Resolved. continue to monitor Nephrology workup pending HTN (hypertension) Continue carvedilol, blood pressure has been labile. Will adjust medications as needed Diabetes mellitus, type 2. Accu-Cheks. Sliding scale insulin. Will adjust as needed Anemia Type and screen ordered, may require transfusion if hemoglobin drops below 7. Workup for nephrology point of view pending. Will continue to monitor DVT prophylaxis: Lovenox GI prophylaxis: Not needed Diet, renal Disposition: Pending symptomatic improvement. Physician Review: Patient Assessed, Agree with Above Assessment and Plan
--- NOTE | 2018-01-08 23:47 | P.PN ---
Subjective Date of Service: 01/08/18 Chief Complaint: cellulitis of the right foot No new complaints Trace edema now will reduce IVF rate and will hold tomorrow Cr stable on IV vanco monitor vanco level and adjust medsa as per dose records requested but no replay will try to contact PCP on Wednesday Physical Examination - Vital Signs Temperature: 97.1 F Blood Pressure: 170/66 Pulse: 67 Respirations: 18 Pulse Ox (%): 97 - Physical Exam General: Alert HEENT: Atraumatic Neck: Supple, Without JVD or thyroid abnormality Respiratory: Clear to auscultation bilaterally, Normal air movement Cardiovascular: Edema (trace edema ) Gastrointestinal: Normal bowel sounds Assessment And Plan - Current Problems (Diagnosis) (1) CKD (chronic kidney disease) Current Visit: Yes Status: Chronic (2) Cellulitis Onset Date: 01/06/18 Current Visit: Yes Status: Acute (3) Diabetes type 2, controlled Current Visit: Yes Status: Acute (4) HTN (hypertension) Current Visit: Yes Status: Acute - Plan NENA vs CKD unknown baseline Cr CKD ;likely due to DM was recently hospitalized and required temp dialysis, hospital contaced but no replay Will try to contact PCP on Wednesday Cr now stable ~3.3 UPC 12 F/U serology w/u US 11/10cm no hydro Hypertension, controlled now Anemia in the presence of acute kidney injury and nephrotic range of proteinuria. F/U SPEP, IEF and K/L Diabetes as by primary. Anemia as above. b12 and folate ok will not check iron panel as pt have acute inflammation Urinary tract infection, stable. We will follow up with the primary. Foot pain MRI; possible Rt 1st toe OM? monitor vanco level MBD PTH 284 calcium ok Physician Review: Patient Assessed, Agree with Above Assessment and Plan
[2018-01-09 06:10] LABS: Absolute Lymphocytes (CBC) 2.2 K/uL (0.7-4.9); Absolute Monocytes 0.7 K/uL (0.1-1.3); Absolute Neutrophil 5.8 K/uL (1.8-8.0); Basophils % 0.9 % (0-1.3); Eosinophils % 2.9 % (0-4.4); Hematocrit 24.8 % (36.0-45.0); Lymphocytes % 24.3 % (15.3-44.8); MCH 28.8 pg (27.0-35.0); MCV 83.7 fL (80-100); MPV 8.5 fL (7.6-11.3); Monocytes % 7.4 % (3.3-12.3); RBC Red Blood Cell Count 2.96 M/uL (3.86-4.86)
[2018-01-09 06:28] LABS: Albumin 2.2 g/dL (3.4-5.0); Bilirubin Total 0.2 mg/dL (0.2-1.0); Phosphorus 4.5 mg/dL (2.5-4.9); Potassium 4.7 mmol/L (3.5-5.1); Protein, Total 6.5 g/dL (6.4-8.2)
[2018-01-09] MEDS: INSULIN -REGULAR HUMAN 50 UNIT/0.5 ML ML SQ SCH ×4 (07:30→20:27)
--- NOTE | 2018-01-09 08:07 | RAD REPORT ---
EXAM DESCRIPTION: RAD - Chest Single View - 01/09/2018 1:52 am CLINICAL HISTORY: PICC line placement A preliminary report was provided at the time of the study and reviewed prior to final report. COMPARISON: January 08 FINDINGS: Portable chest was obtained following placement of a right upper extremity PICC line. The catheter tip is in the mid SVC.
[2018-01-09] MEDS: NA CHLORIDE 0.9% 1,000 ML IV SCH ×2 (09:00→15:13)
[2018-01-09] MEDS: CARVEDILOL 6.25 MG TAB PO SCH ×2 (10:39→20:26)
[2018-01-09] MEDS: ENOXAPARIN 30 MG/0.3 ML SQ SCH (10:39)
[2018-01-09] MEDS: MEDIHONEY 44 ML TOPICAL TUBE TOP SCH (10:40)
[2018-01-09] MEDS: VANCOMYCIN/NS 1 gm 1 GM/250 ML BAG IV SCH (10:48)
[2018-01-09] MEDS ORDERED: LACTULOSE 20 GM/30 ML UCUP PO ONE (12:17)
--- NOTE | 2018-01-09 12:17 | P.PN ---
Subjective Date of Service: 01/09/18 Chief Complaint: cellulitis of the right foot Pt with DM , Hx of hyperkalemia, required HD recently for hyperkalemia presented for foot pain and ulcer No new complaints trace edema Will dc lasix , cont IVF till Mn and dc encourage po intake Cr down 2.9 on IV vanco monitor vanco level and adjust medsa as per dose will try to contact PCP on Wednesday for records can be discharged from nephrology point of view, need to follow up in 1-2wks Physical Examination - Vital Signs Temperature: 97.8 F Blood Pressure: 186/78 Pulse: 60 Respirations: 16 Pulse Ox (%): 99 - Physical Exam General: Oriented x3 HEENT: Atraumatic Neck: Supple, Without JVD or thyroid abnormality Respiratory: Clear to auscultation bilaterally, Normal air movement Cardiovascular: No edema, Regular rate/rhythm, Normal S1 S2, No rubs, No murmurs , Edema (Trace pedal edema ) Gastrointestinal: Normal bowel sounds, Soft and benign, Non-distended Assessment And Plan - Current Problems (Diagnosis) (1) CKD (chronic kidney disease) Current Visit: Yes Status: Chronic (2) Cellulitis Onset Date: 01/06/18 Current Visit: Yes Status: Acute (3) Diabetes type 2, controlled Current Visit: Yes Status: Acute (4) HTN (hypertension) Current Visit: Yes Status: Acute - Plan NENA vs CKD unknown baseline Cr CKD ;likely due to DM was recently hospitalized and required temp dialysis, hospital contacted but no replay Will try to contact PCP on Wednesday Cr was stable ~3.3 on IVF then down to 2.9 UPC 12 F/U serology w/u US 11/10cm no hydro Hypertension, controlled now Anemia in the presence of acute kidney injury and nephrotic range of proteinuria. F/U SPEP, IEF and K/L Diabetes as by primary. Anemia as above. b12 and folate ok will not check iron panel as pt have acute inflammation Urinary tract infection, stable. We will follow up with the primary. Foot pain MRI; possible Rt 1st toe OM? monitor vanco level MBD PTH 284 calcium ok Physician Review: Patient Assessed, Agree with Above Assessment and Plan
[2018-01-09] MEDS: ACETAMINOPHEN 500 MG TAB PO PRN (20:26)
--- NOTE | 2018-01-09 23:17 | P.PN ---
Subjective Date of Service: 01/09/18 Chief Complaint: cellulitis of the right foot Patient seen and examined at bedside. Daughter at bedside. Case discussed with nursing staff. The patient denies any new complaints this morning though still complaining of foot pain. She is visiting from [place], would like to go back to [place] after feeling better. Review of Systems Unremarkable Physical Examination - Vital Signs Temperature: 98.7 F Blood Pressure: 158/70 Pulse: 68 Respirations: 16 Pulse Ox (%): 96 - Physical Exam General: Alert, In no apparent distress HEENT: Atraumatic, PERRLA, EOMI Neck: Supple, JVD not distended Respiratory: Clear to auscultation bilaterally, Normal air movement Cardiovascular: Regular rate/rhythm, Normal S1 S2 Gastrointestinal: Normal bowel sounds, No tenderness Musculoskeletal: No tenderness Integumentary: Skin lesion, Tenderness/swelling, Erythema Neurological: Normal speech, Normal tone, Normal affect Assessment And Plan - Plan Cellulitis of left foot Patient with ulceration on left foot, at the base of the 1st toe. Noted some drainage, no tunneling appreciated. MRI of the left foot with evidence of osteomyelitis of bone. Continue IV vancomycin. Will likely need long-term IV antibiotic, PICC line in place. NENA on CKD, stage unsure Unsure of baseline as we do not have records. Continue IV hydration Nephrology on board pending workup. Recommendations appreciated Hyperkalemia: Resolved. continue to monitor Nephrology workup pending HTN (hypertension) Continue carvedilol, blood pressure has been labile. Will adjust medications as needed Diabetes mellitus, type 2. Accu-Cheks. Sliding scale insulin. Will adjust as needed Anemia Type and screen ordered, may require transfusion if hemoglobin drops below 7. Workup for nephrology point of view pending. Will continue to monitor DVT prophylaxis: Lovenox GI prophylaxis: Not needed Diet, renal Disposition: Pending symptomatic improvement. Physician Review: Patient Assessed, Agree with Above Assessment and Plan
[2018-01-10 05:49] LABS: Albumin 1.9 g/dL (3.4-5.0); Bilirubin Total 0.2 mg/dL (0.2-1.0); Phosphorus 4.6 mg/dL (2.5-4.9); Potassium 4.5 mmol/L (3.5-5.1); Protein, Total 5.8 g/dL (6.4-8.2)
[2018-01-10] MEDS: INSULIN -REGULAR HUMAN 50 UNIT/0.5 ML ML SQ SCH ×4 (07:30→20:48)
[2018-01-10 08:11] LABS: Absolute Lymphocytes (CBC) 3.2 K/uL (0.7-4.9); Absolute Monocytes 0.7 K/uL (0.1-1.3); Absolute Neutrophil 4.2 K/uL (1.8-8.0); Basophils % 0.6 % (0-1.3); Eosinophils % 4.1 % (0-4.4); Hematocrit 22.6 % (36.0-45.0); Lymphocytes % 37.2 % (15.3-44.8); MCH 28.1 pg (27.0-35.0); MCV 85.5 fL (80-100); MPV 8.8 fL (7.6-11.3); Monocytes % 8.7 % (3.3-12.3); RBC Red Blood Cell Count 2.64 M/uL (3.86-4.86)
[2018-01-10] MEDS: ENOXAPARIN 30 MG/0.3 ML SQ SCH (08:39)
[2018-01-10] MEDS: POLYETHYL GLY 3350 17 GM/DOSE PO PRN (08:39)
[2018-01-10] MEDS: CARVEDILOL 6.25 MG TAB PO SCH ×2 (08:39→20:47)
[2018-01-10] MEDS: MEDIHONEY 44 ML TOPICAL TUBE TOP SCH (08:40)
[2018-01-10 12:00] LABS: HIV 1/2 Antibody Diff Not indicated.; HIV AG/AB 4TH GEN Non-reactive (Non-reactive)
[2018-01-10] MEDS ORDERED: NA CHLORIDE 0.9% 250 ML ONE ×2 (17:48→22:46)
--- NOTE | 2018-01-11 00:05 | P.PN ---
Subjective Date of Service: 01/10/18 Chief Complaint: cellulitis of the right foot Patient seen and examined at bedside. Daughter at bedside. Case discussed with nursing staff. The patient denies any new complaints this morning though still complaining of foot pain. She is visiting from [place], would like to go back to [place] after feeling better. Review of Systems As noted above Physical Examination - Vital Signs Temperature: 98 F Blood Pressure: 158/56 Pulse: 69 Respirations: 18 Pulse Ox (%): 100 - Physical Exam General: Alert, In no apparent distress, Oriented x3 HEENT: Atraumatic, PERRLA, EOMI Neck: Supple, JVD not distended Respiratory: Clear to auscultation bilaterally, Normal air movement Cardiovascular: Regular rate/rhythm, Normal S1 S2 Gastrointestinal: Normal bowel sounds, No tenderness Musculoskeletal: No tenderness Integumentary: Skin lesion, Tenderness/swelling Neurological: Normal speech, Normal tone, Normal affect Lymphatics: No axilla or inguinal lymphadenopathy - Studies Microbiology Data (last 24 hrs): 01/05/18 17:30 Blood - Blood Aerobic Blood Culture - Final No growth in 5 days. 01/05/18 17:30 Blood - Blood Anaerobic Blood Culture - Final No growth in 5 days. 01/05/18 17:45 Blood - Blood Aerobic Blood Culture - Final No growth in 5 days. 01/05/18 17:45 Blood - Blood Anaerobic Blood Culture - Final No growth in 5 days. Assessment And Plan - Plan Cellulitis of left foot Patient with ulceration on left foot, at the base of the 1st toe. Noted some drainage, no tunneling appreciated. MRI of the left foot with evidence of osteomyelitis of bone. Cx no growth to date Continue IV vancomycin. Will likely need long-term IV antibiotic, PICC line in place. Consult placed for setting up outpatient IV antibiotics as patient is uninsured and undocumented. NENA on CKD, stage unsure. NENA improving Unsure of baseline as we do not have records. Creatinine stable Nephrology on board pending workup. Recommendations appreciated Hyperkalemia: Resolved. continue to monitor HTN (hypertension) Continue carvedilol, blood pressure has been labile. Will adjust medications as needed Diabetes mellitus, type 2. Accu-Cheks. Sliding scale insulin. Will adjust as needed Anemia Type and screen ordered, may require transfusion if hemoglobin drops below 7. Will continue to monitor DVT prophylaxis: Lovenox GI prophylaxis: Not needed Diet, renal Disposition: Pending symptomatic improvement. Pending outpatient setup for IV antibiotics for an uninsured patient Physician Review: Patient Assessed, Agree with Above Assessment and Plan
[2018-01-11 05:39] LABS: Albumin 1.9 g/dL (3.4-5.0); Phosphorus 4.8 mg/dL (2.5-4.9); Potassium 4.8 mmol/L (3.5-5.1)
[2018-01-11 07:29] LABS: Hematocrit 29.2 % (36.0-45.0)
[2018-01-11] MEDS: INSULIN -REGULAR HUMAN 50 UNIT/0.5 ML ML SQ SCH ×4 (07:30→21:34)
[2018-01-11] MEDS: VANCOMYCIN/NS 1 gm 1 GM/250 ML BAG IV SCH (09:58)
[2018-01-11] MEDS: ENOXAPARIN 30 MG/0.3 ML SQ SCH (09:58)
[2018-01-11] MEDS: CARVEDILOL 6.25 MG TAB PO SCH ×2 (09:58→21:03)
[2018-01-11] MEDS: MEDIHONEY 44 ML TOPICAL TUBE TOP SCH (09:59)
[2018-01-11 10:50] LABS: Vitamin D 1,25-Dihydroxy Total <8 pg/mL (18-72); Vitamin D,1,25-OH2, D2 <8 pg/mL
[2018-01-11] MEDS: POLYETHYL GLY 3350 17 GM/DOSE PO PRN (15:24)
--- NOTE | 2018-01-11 17:03 | P.CNS ---
Date of Consult: 01/11/18 Patient was refered by the hospitalist for out patient vancomycin therpy. She has a history of ckd stage 4. She had 3 days of dialysis in [place]. Came to the hospital with cellulitis. However the MRI showed possible osteomyleitis. So needs transplant case manager iv antibiotics. The patient is her from [place] visiting her children. Does not have insurance. She has a history of diabetes and the above stated, stage 4 ckd PMH, diabetes, htn, stage 4 ckd Allergies NKDA STEERSMAN aaoX3 HEENT Ant, eom, -ve LAD CVS s1,s2, rrr RS LCTA EXT right lateral great toe. Stage 2 diabetic ulcer. 1. Right toe osteomyelitis. Has a picc line. Plan is for 2 week Vancomycin in same day surgery 2. Right toe diabetic ulcer. May be able to get her into the wound care 3. Stage 4 ckd. The patient would be better off getting her care in Dialysis. However chronic dialysis in a 83 year old patient may not be the best for her. They tend to decline. I have discussed this with the laly. May consider not restarting dialysis
--- NOTE | 2018-01-11 17:41 | PN ---
Date of Progress Note: 01/11/2018 Subjective: The patient seen and examined. Chart reviewed and case discussed with RN. The patient doing well. Otherwise, no complaints. Review of Systems: Negative except as above. Medications: List reviewed. Code Status: Full. Objective: Vital Signs: Temperature 97.6, heart rate 62, blood pressure 149/70 , respirations 18, O2 96% on room air. General: Awake, alert, oriented x3, not in any acute distress. Elderly female. Ill-appearing. CV: S1 and S2. No murmurs. Peripheral pulses present. Respiratory: Moving air well bilaterally. No wheezing or stridor. Gastrointestinal: Abdomen is soft, nontender, nondistended. Positive bowel sounds. Extremities: No clubbing, cyanosis, or edema. Neurologic: Nonfocal. Extremities: Left lower extremity cellulitis. Erythema is improving. Ulceration at the lateral aspect of the first metatarsal. Laboratory Data: Sodium 140, potassium 4.8, chloride 111, CO2 23, BUN 47, creatinine 2.5, glucose 123, calcium 7.6, phosphorus 4.8, albumin 1.9. H and H of 9.9 and 29.2. Status post 2 units PRBCs. Microbiology: Blood cultures negative to date. Final wound cultures, no anaerobes grown, 3+ yeast, 2+ mixed skin cade. Urine culture canceled. Assessment: An 82-year-old female with: 1. Cellulitis of left foot secondary to ulceration at the base of the first toe. MRI of the foot does show osteomyelitis at the first metatarsal head. The patient has received PICC line. Will need IV antibiotics for 6 weeks. Continue vancomycin. The patient will be set up with Dr. Kim as outpatient for IV antibiotics. 2. Acute kidney injury superimposed on chronic kidney disease, likely stage IV. 3. Hyperkalemia, corrected. 4. Essential hypertension. Blood pressure not well controlled. Medications have been adjusted. 5. Diabetes mellitus type 2 with hyperglycemia without use of insulin. 6. Anemia, likely anemia of chronic disease with some superimposed iron deficiency anemia. The patient was transfused 2 units of PRBCs. H and H improved to 9.9. Plan: Discharge on long-term IV antibiotics setup. /RITU Voice ID: [id number] Report ID: [id number] MTDD
--- NOTE | 2018-01-11 17:49 | PN ---
Date of Progress Note: 01/11/2018 Subjective: The patient was admitted with acute kidney injury on advanced chronic kidney disease. Physical Examination: Vital Signs: Blood pressure 149/70, pulse of 62, afebrile. Chest: Clear to auscultation. Heart: S1 and S2 regular. Abdomen: Soft, nontender. Extremities: Dressing on the left big toe. Laboratory Data: H and H 9.9/29.2. Sodium 140, potassium 4.8, bicarb 23, BUN 47, creatinine 2.5, ca lcium 7.6, phosphorus 4.8, albumin 1.9. Vitamin D less than 8. PTH 279. TSH 0.09. Serology still pending. S4 been depleted. Assessment And Plan: 1.Acute kidney injury on chronic kidney disease secondary to toxic acute tubular necrosis with nephr otic range, protein urea mostly secondary to diabetes. Given the improvement in the kidney function, I doubt to be autoimmune disease mostly the depleted. Complement is secondary to the infection acti vity in her. We will monitor. We will follow up serology. 2.Hypertension, controlled, optimal. 3.Nephrotic range of proteinuria as above. I going to be reluctant on adding any EMMA inhibitor or A RB for the time being as the patient just recover. 4.Osteomyelitis. Continue current treatment. We will follow up with primary. 5.Current Medications: The patient on include; carvedilol, Lasix, Zofran, and vancomycin. ELIJAH/RITU Voice ID: [id number] Report ID: [id number]
[2018-01-11 18:01] LABS: Anti-Cardiolipin IgA Antibody <11 APL (<=11)
[2018-01-11 18:55] LABS: Hepatitis C Virus RNA (PCR)log <1.18 log IU/mL
[2018-01-11 19:38] LABS: Albumin, (SPE) 2.5 g/dL (3.8-4.8); Alpha-1-Globulins 0.3 g/dL (0.2-0.3); Gamma Globulins 1.3 g/dL (0.8-1.7); INTERPRETATION REPORT
--- NOTE | 2018-01-11 23:01 | PN ---
Date of Progress Note: 01/10/2018 Chief Complaint: Chronic kidney disease, acute kidney injury. History Of Present Illness: The patient developed acute kidney injury, nonoliguric, and renal functi on has somewhat improved. The patient required dialysis for hyperkalemia. The patient has history o f diabetes mellitus, hypertension, and chronic kidney disease Review of Systems: The patient denies complaints. Physical Examination: Lungs: Clear to auscultation bilaterally. Heart: S1, S2. Abdomen: Soft, benign. Extremities: Minimal edema. Impression And Plan: 1.Chronic kidney disease likely secondary to diabetes mellitus and hypertension. The patient stated that she had recently treatment with dialysis for hyperkalemia prior to this admission. I recommend to avoid metformin in this particular patient. She is not a candidate for sulfa medication. The joseph kim is undergoing workup for proteinuria and serum protein electrophoresis and urine protein electr ophoresis was ordered and results are pending. 2.Diabetes mellitus. Recommend treatment with insulin. 3.Urinary tract infection. Monitor urine culture. 4.The patient has nonoliguric urine output. Chemistry panel was done during this admission and crea tinine level is 2.6 and BUN 49. There is no evidence of metabolic acidosis. Potassium level is 4.5. Recommend low-potassium diet and to monitor renal function. The patient has hypoalbuminemia and th is goes along with proteinuria, possible nephrotic syndrome. Recommend 24 hours urine to check for t he monoclonal gammopathy of unknown significance. The patient may be a candidate for renal biopsy and serology tests are suggestive for vasculitis. EB/MODL Voice ID: [id number] Report ID: [id number]
[2018-01-12 04:53] LABS: Absolute Lymphocytes (CBC) 2.5 K/uL (0.7-4.9); Absolute Monocytes 0.7 K/uL (0.1-1.3); Absolute Neutrophil 6.3 K/uL (1.8-8.0); Basophils % 0.7 % (0-1.3); Eosinophils % 4.3 % (0-4.4); Hematocrit 30.2 % (36.0-45.0); MCH 28.1 pg (27.0-35.0); MCV 85.3 fL (80-100); Monocytes % 7.1 % (3.3-12.3); RBC Red Blood Cell Count 3.54 M/uL (3.86-4.86)
[2018-01-12 05:09] LABS: HBsAG Nonreactive (Nonreactive)
[2018-01-12 05:33] LABS: Potassium 4.7 mmol/L (3.5-5.1)
[2018-01-12] MEDS: INSULIN -REGULAR HUMAN 50 UNIT/0.5 ML ML SQ SCH ×3 (07:30→17:23)
[2018-01-12] MEDS: CARVEDILOL 6.25 MG TAB PO SCH (09:19)
[2018-01-12] MEDS: MEDIHONEY 44 ML TOPICAL TUBE TOP SCH (09:19)
[2018-01-12] MEDS: POLYETHYL GLY 3350 17 GM/DOSE PO PRN (09:19)
[2018-01-12] MEDS ORDERED: HYDRALAZINE HCL 20 MG/ML VIAL IV PRN (12:41)
[2018-01-12] MEDS ORDERED: PANTOPRAZOLE 40MG TABLET PO SCH (14:00)
[2018-01-12 16:30] LABS: Scleroderma Antibody (Scl-70) <1.0 AI (<1.0)
[2018-01-12 21:26] LABS: Urine Total Volume 24 Hours 1325 mL/24 h
--- NOTE | 2018-01-13 02:01 | PN ---
Date of Progress Note: 01/12/2018 Subjective: The patient was admitted with foot infection, acute kidney injury. Workup has been nega tive. Physical Examination: Vital Signs: When I saw the patient, blood pressure of 141/64, pulse of 69, afebrile. Chest: Clear to auscultation. Heart: S1, S2. Regular. Abdomen: Soft, nontender. Extremity: Dressing on the foot. Laboratory Data: H and H 9.9/30.2. Sodium 142, potassium 4.7, bicarb 22, BUN 49, creatinine 2.4, ca lcium 7.6. Urinalysis; specific gravity of 1.010, had hematuria. No leukouria. Protein-creatinine ratio of 12 g. Serology apparently had EUGENIA positive speckled with depleted complement C4. Seru m protein electrophoresis was negative. 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 Given the positive EUGENIA and depleted complement, the patient is going to need workup to rule out any systemic l upus erythematosus, going to need kidney biopsy. Hopefully after controlling the infection, we will proceed with kidney biopsy as outpatient. 2.Hypertension, controlled, optimal. Continue current medication. 3.Nephrotic range of proteinuria secondary to diabetes to rule out any systemic lupus erythematosus. We will plan for kidney biopsy given the stabilization on the kidney function. Currently, I do not see the need for urgency to do it right now. 4.Foot infection, osteomyelitis. Continue current antibiotic. CAITLYN Voice ID: [id number] Report ID: [id number]
--- NOTE | 2018-01-13 07:52 | DS ---
Date of Discharge: 01/12/2018 Consultants: Nephrology, Dr. Barnes and Dr. Carrington as well as Dr. Simpson. Procedures: None. Admitting Diagnoses: 1. Cellulitis. 2. Diabetes mellitus type 2, uncontrolled. 3. Essential hypertension. Discharge Diagnoses: 1. Cellulitis of the left foot with osteomyelitis of the first metatarsal head. The patient will need IV antibiotics for 6 weeks. 2. Acute kidney injury, superimposed on chronic kidney disease, stage 4. 3. Hyperkalemia, corrected. 4. Essential hypertension, uncontrolled. Medications adjusted. 5. Diabetes mellitus type 2 with hyperglycemia without the use of insulin, uncontrolled. 6. Anemia of chronic disease, secondary to chronic kidney disease as well as iron deficiency status post PRBCs. 7. Gastrointestinal bleed. No further episodes. GI consulted. Hospital Course: The patient is an 82-year-old female who was visiting her children from [place], who has past medical history of chronic kidney disease, diabetes, liver problems, hypertension. The patient had been on dialysis before and follows with Nephrology. The patient was found to have failed outpatient treatment of her foot wound, which was a diabetic ulcer. MRI was done which showed osteomyelitis of the first metatarsal head. The patient was set up for IV antibiotics, long-term, which will be followed by Dr. Kim. The patient did receive a PICC line for the antibiotics. Regarding her chronic kidney disease, her creatinine has been improving. The patient's blood cultures did not show any growth. Wound cultures showed skin cade. The patient did have some bright red blood per rectum, which was likely due to her hemorrhoid . She does have iron deficiency anemia as well as chronic anemia due to her chronic kidney disease. The patient did receive 2 units of PRBCs. GI was consulted. The patient's IV antibiotics were arranged through the hospital. The patient was then discharged home in a fair condition. Activity: Fall precautions. Medications: As per medication reconciliation. The patient will be on vancomycin 1 g q.48 hours for at least 6 weeks. Medications for blood pressure were added. Followup: Follow up with primary care physician in 2-3 days. Follow up with wound care. Return to ER for worsening condition. Diet: Renal diet. Physical Examination: General: Awake, alert, oriented, elderly female, in no acute distress. CV: S1, S2. No murmurs. Respiratory: Moving air well bilaterally. Gastrointestinal: Abdomen is soft, nontender, nondistended. Positive bowel sounds. Extremities: No clubbing, cyanosis, or edema. Skin: Left foot wound at the base of the first toe. No drainage. Total time spent discharging the patient was 39 minutes. FREDDIE Voice ID: [id number] Report ID: [id number] [facility]
[2018-01-13 19:12] LABS: P-ANCA Anti-Myeloperoxidase Ab <1.0 AI (<1.0)
== END 2018-01-12 19:00 | disposition home or self-care (01) | DRG 539 ==
LOC: ER 17:06 → ERHOLD 17:47 → 4TH 20:37
PROVIDERS: ADMIT Family Medicine; ATTEND Family Medicine
PROC: 30233N1 Transfusion of Nonautologous Red Blood Cells into Peripheral Vein, Percutaneous Approach (ICD-10-PCS; principal; 2018-01-07)
PROC: 02HV33Z Insertion of Infusion Device into Superior Vena Cava, Percutaneous Approach (ICD-10-PCS; 2018-01-08)
PROC: B548ZZA Ultrasonography of Superior Vena Cava, Guidance (ICD-10-PCS; 2018-01-08)
DX: M86.172 Other acute osteomyelitis, left ankle and foot (principal); N17.0 Acute kidney failure with tubular necrosis; L97.526 Non-pressure chronic ulcer of other part of left foot with bone involvement without evidence of necrosis; K92.2 Gastrointestinal hemorrhage, unspecified; N18.4 Chronic kidney disease, stage 4 (severe); E87.5 Hyperkalemia; D63.1 Anemia in chronic kidney disease; D50.9 Iron deficiency anemia, unspecified; I12.9 Hypertensive chronic kidney disease with stage 1 through stage 4 chronic kidney disease, or unspecified chronic kidney disease; E11.22 Type 2 diabetes mellitus with diabetic chronic kidney disease; E11.65 Type 2 diabetes mellitus with hyperglycemia; Z79.84 Long term (current) use of oral hypoglycemic drugs; E11.621 Type 2 diabetes mellitus with foot ulcer; E11.628 Type 2 diabetes mellitus with other skin complications; L03.032 Cellulitis of left toe; E11.40 Type 2 diabetes mellitus with diabetic neuropathy, unspecified; E11.319 Type 2 diabetes mellitus with unspecified diabetic retinopathy without macular edema; R80.9 Proteinuria, unspecified; E88.09 Other disorders of plasma-protein metabolism, not elsewhere classified
CPT/HCPCS: 36415; 71045; 76770; 80048; 80053; 80069; 80202; 81003; 81015; 82570; 82607; 82652; 82728; 82746; 82962; 83520; 83540; 83735; 83883; 83970; 84156; 84165; 84443; 84466; 85014; 85018; 85025; 85027; 85044; 86021; 86038; 86147; 86160; 86225; 86235; 86317; 86334; 86430; 86704; 86706; 86850; 86900; 86901; 87040; 87070; 87075; 87205; 87340; 87389; 87522; 94760; 96361; 96374; 99285; J0360; J1650; J1940; J2405; J3370; J7030; P9016

== ENCOUNTER 2018-01-14 13:20 | Emergency (ER) | payer SELFPAY ==
--- NOTE | 2018-01-14 15:35 | ER ---
Nurse's Notes [facility] Name: Barb eBcker Age: 82 yrs Sex: Female : 1935 Arrival Date: 01/14/2018 Time: 13:21 Bed 8 Private MD: Diagnosis: Other specified complication of vascular prosthetic devices, implants and grafts-Bleeding from picc line insertion site - Resolved Presentation: 01/14 14:06 Presenting complaint: Child states: She has had bleeding from her PICC line site that aj1 started today. She had antibiotics done yesterday and it was working fine, but today when she got in the shower she noticed the blood. Transition of care: patient was not received from another setting of care. Onset of symptoms was January 14, 2018. Risk Assessment: Do you want to hurt yourself or someone else? Patient reports no desire to harm self or others. Initial Sepsis Screen: Does the patient meet any 2 criteria? No. Patient's initial sepsis screen is negative. Does the patient have a suspected source of infection? No. Patient's initial sepsis screen is negative. Care prior to arrival: None. 14:06 Method Of Arrival: Ambulatory aj1 14:06 Acuity: SD 4 aj1 Triage Assessment: 14:09 General: Appears in no apparent distress. comfortable, Behavior is calm, cooperative, aj1 appropriate for age. Pain: Complains of pain in right arm. Neuro: Level of Consciousness is awake, alert, obeys commands. Cardiovascular: Patient's skin is warm and dry. Respiratory: Airway is patent Respiratory effort is even, unlabored, Respiratory pattern is regular, symmetrical. Historical: - Allergies: 14:09 No Known Allergies; aj1 - Home Meds: 14:09 Bactrim DS Oral [Active]; furosemide 80 mg Oral tab 1 tab once daily [Active]; Levaquin aj1 Oral [Active]; Metformin Oral [Active]; TYLENOL #3 [Active]; Vitamin D Oral [Active]; - PMHx: 14:09 Diabetes - NIDDM; Hypertension; aj1 - Immunization history:: Flu vaccine is up to date. - Social history:: Smoking status: Patient/guardian denies using tobacco. - Ebola Screening: : Patient denies travel to an Ebola-affected area in the 21 days before illness onset. Screenin:26 Abuse screen: Denies threats or abuse. Denies injuries from another. Nutritional ph screening: No deficits noted. Tuberculosis screening: No symptoms or risk factors identified. Fall Risk None identified. Assessment: 15:05 Reassessment: PICC line present to R upper arm, pt reports that it was last accessed ph yesterday for antibiotic administration, dressing also changed yesterday, pt reports noticing blood under dressing this am. Dressing is in place w/ bleeding noted beneath, dressing removed to assess, dried blood and clots noted to suture site, bio patch also noted to be saturated w/ blood but no active bleeding noted at either site, site cleaned and dressing replaced per protocol, will continue to monitor for bleeding. 15:16 General: Appears in no apparent distress. comfortable, well groomed, Behavior is calm, ph cooperative, appropriate for age, Denies fever. Pain: Complains of pain in right bicep Pain currently is 3 out of 10 on a pain scale. Neuro: Level of Consciousness is awake, alert, obeys commands, Oriented to person, place, time, situation. Cardiovascular: Capillary refill < 3 seconds in bilateral fingers Patient's skin is warm and dry. Respiratory: Airway is patent Respiratory effort is even, unlabored. Derm: Skin is healthy with good turgor, Skin is pink, warm \T\ dry. Musculoskeletal: Circulation, motion, and sensation intact. Range of motion: intact in all extremities. Vital Signs: 14:09 BP 159 / 72; Pulse 68; Resp 18; Temp 97.2; Pulse Ox 99% on R/A; Weight 63.5 kg (R); aj1 15:50 BP 148 / 76; Pulse 64; Resp 18; Temp 97.6; Pulse Ox 99% on R/A; ph ED Course: 13:21 Patient arrived in ED. sb2 14:08 Triage completed. aj1 14:09 Arm band placed on Patient placed in an exam room. aj1 14:20 Kg Medina NP is PHCP. pm1 14:20 Jose Juan Ibarra MD is Attending Physician. pm1 14:29 Vero Jones RN is Primary Nurse. ph 15:17 Accessed PICC line. using ,sterile technique, dressing intact w/ blood noted beneath, ph removed dressing, dried blood and clots noted to suture site, bio patch also noted to be saturated w/ blood, no active bleeding noted from insertion site or suture site at this time, dressing changed. Flushes easily. 15:26 Patient has correct armband on for positive identification. Bed in low position. Call ph light in reach. Side rails up X 1. Warm blanket given. 15:51 No provider procedures requiring assistance completed. Patient did not have IV access ph during this emergency room visit. Administered Medications: No medications were administered Outcome: 15:34 Discharge ordered by MD. pm1 15:51 Discharged to home via wheelchair, with family. ph 15:51 Condition: good 15:51 Discharge instructions given to patient, Instructed on discharge instructions, follow up and referral plans. Demonstrated understanding of instructions, follow-up care. 15:52 Patient left the ED. ph Signatures: Eliza Black RN RN aj1 Vero Jones RN RN ph Kg Medina, [employer]TER pm1 Latha Lawrence2
--- NOTE | 2018-01-14 15:35 | EDPHYS ---
Physician Documentation [facility] Name: Barb Becker Age: 82 yrs Sex: Female : 1935 Arrival Date: 01/14/2018 Time: 13:21 Bed 8 Private MD: ED Physician Jose Juan Ibarra HPI: 01/14 15:04 This 82 yrs old Female presents to ER via Ambulatory with complaints of pm1 bleeding around picc line insertion point. 15:04 The affected area is on the right arm. Previous treatment: patient had IV antibiotics pm1 given through PICC line today. The patient has not experienced similar symptoms in the past. Patient seen at wound care today IV antibiotic infusion therapy. Historical: - Allergies: 14:09 No Known Allergies; aj1 - Home Meds: 14:09 Bactrim DS Oral [Active]; furosemide 80 mg Oral tab 1 tab once daily [Active]; Levaquin aj1 Oral [Active]; Metformin Oral [Active]; TYLENOL #3 [Active]; Vitamin D Oral [Active]; - PMHx: 14:09 Diabetes - NIDDM; Hypertension; aj1 - Immunization history:: Flu vaccine is up to date. - Social history:: Smoking status: Patient/guardian denies using tobacco. - Ebola Screening: : Patient denies travel to an Ebola-affected area in the 21 days before illness onset. ROS: 15:05 Constitutional: Negative for fever, chills, and weight loss, Eyes: Negative for injury, pm1 pain, redness, and discharge, ENT: Negative for injury, pain, and discharge, Neck: Negative for injury, pain, and swelling, Cardiovascular: Negative for chest pain, palpitations, and edema, Respiratory: Negative for shortness of breath, cough, wheezing, and pleuritic chest pain, Abdomen/GI: Negative for abdominal pain, nausea, vomiting, diarrhea, and constipation, Back: Negative for injury and pain, : Negative for injury, bleeding, discharge, and swelling, MS/Extremity: Negative for injury and deformity, Skin: Negative for injury, rash, and discoloration, Neuro: Negative for headache, weakness, numbness, tingling, and seizure. Exam: 15:05 Constitutional: This is a well developed, well nourished patient who is awake, alert, pm1 and in no acute distress. Head/Face: Normocephalic, atraumatic. Eyes: Pupils equal round and reactive to light, extra-ocular motions intact. Lids and lashes normal. Conjunctiva and sclera are non-icteric and not injected. Cornea within normal limits. Periorbital areas with no swelling, redness, or edema. ENT: Nares patent. No nasal discharge, no septal abnormalities noted. Tympanic membranes are normal and external auditory canals are clear. Oropharynx with no redness, swelling, or masses, exudates, or evidence of obstruction, uvula midline. Mucous membranes moist. Neck: Trachea midline, no thyromegaly or masses palpated, and no cervical lymphadenopathy. Supple, full range of motion without nuchal rigidity, or vertebral point tenderness. No Meningismus. Chest/axilla: Normal chest wall appearance and motion. Nontender with no deformity. No lesions are appreciated. Cardiovascular: Regular rate and rhythm with a normal S1 and S2. No gallops, murmurs, or rubs. Normal PMI, no JVD. No pulse deficits. Respiratory: Lungs have equal breath sounds bilaterally, clear to auscultation and percussion. No rales, rhonchi or wheezes noted. No increased work of breathing, no retractions or nasal flaring. Abdomen/GI: Soft, non-tender, with normal bowel sounds. No distension or tympany. No guarding or rebound. No evidence of tenderness throughout. Back: No spinal tenderness. No costovertebral tenderness. Full range of motion. 15:05 Skin: Appearance: normal except for affected area, dried blood present at PICC line insertion site. No active bleeding present. Vital Signs: 14:09 BP 159 / 72; Pulse 68; Resp 18; Temp 97.2; Pulse Ox 99% on R/A; Weight 63.5 kg (R); aj1 15:50 BP 148 / 76; Pulse 64; Resp 18; Temp 97.6; Pulse Ox 99% on R/A; ph MDM: 14:41 Patient medically screened. pm1 15:30 Data reviewed: vital signs. Data interpreted: Pulse oximetry: on room air is 99 %. pm1 Interpretation: normal. Counseling: I had a detailed discussion with the patient and/or guardian regarding: the historical points, exam findings, and any diagnostic results supporting the discharge/admit diagnosis, the need for outpatient follow up, to return to the emergency department if symptoms worsen or persist or if there are any questions or concerns that arise at home. 15:30 ED course: Dressing changed and no active bleeding present. pm1 01/14 15:00 Order name: Wound dressing; Complete Time: 15:16 pm1 Administered Medications: No medications were administered Disposition: 16:53 Co-signature as Attending Physician, Jose Juan Ibarra MD. ma2 Disposition: 01/14/18 15:34 Discharged to Home. Impression: Other specified complication of vascular prosthetic devices, implants and grafts - Bleeding from picc line insertion site - Resolved. - Condition is Stable. - Discharge Instructions: PICC Home Guide, PICC Insertion, Care After. - Medication Reconciliation Form, Thank You Letter form. - Follow up: Emergency Department; When: As needed; Reason: Worsening of condition. Follow up: Private Physician; When: As needed; Reason: Recheck today's complaints, Continuance of care, Re-evaluation by your physician. - Problem is new. - Symptoms are resolved. Signatures: Eliza Black RN RN [facility] Vero Jones RN RN Kg Medina, [employer] REPRESENTATIVE pm1 Jose Juan Ibarra MD MD oh2 Corrections: (The following items were deleted from the chart) 15:35 15:34 01/14/2018 15:34 Discharged to Home. Impression: Other specified complication of pm1 vascular prosthetic devices, implants and grafts - Bleeding from picc line insertion site. Condition is Stable. Forms are Medication Reconciliation Form, Thank You Letter, Antibiotic Education, Prescription Opioid Use. Follow up: Emergency Department; When: As needed; Reason: Worsening of condition. Follow up: Private Physician; When: As needed; Reason: Recheck today's complaints, Continuance of care, Re-evaluation by your physician. Problem is new. Symptoms are resolved. pm1 15:52 15:35 01/14/2018 15:34 Discharged to Home. Impression: Other specified complication of ph vascular prosthetic devices, implants and grafts - Bleeding from picc line insertion site - Resolved. Condition is Stable. Discharge Instructions: PICC Home Guide, PICC Insertion, Care After. Forms are Medication Reconciliation Form, Thank You Letter. Follow up: Emergency Department; When: As needed; Reason: Worsening of condition. Follow up: Private Physician; When: As needed; Reason: Recheck today's complaints, Continuance of care, Re-evaluation by your physician. Problem is new. Symptoms are resolved. pm1
== END 2018-01-14 15:52 | disposition home or self-care (01) ==
LOC: ER 13:20
DX: T82.898A Other specified complication of vascular prosthetic devices, implants and grafts, initial encounter (principal); E11.9 Type 2 diabetes mellitus without complications; I10 Essential (primary) hypertension; Z79.84 Long term (current) use of oral hypoglycemic drugs; Z79.899 Other long term (current) drug therapy
CPT/HCPCS: 99284